=== PATIENT | female | born 1960 | race Caucasian/White ===

== ENCOUNTER → 2018-12-25 | Outpatient (CLI) | payer BC ==
[~2018-12-25] MED LIST: ALB18R INH; ALBU8.5H11 INH; CAL1TABL8 PO; CEPH-13 PO; CET10 PO; CIP500 PO; DOC100 PO; FAMO20TA28 PO; FLUT12HF2 INH; HCTZ25 PO; HYDR-3083 PO; HYDR-385 PO; HYDR12.556 PO; IBUP-1671 PO; IBUP600T22 PO; LEVO75TA76 PO; LISI-355 PO; METH54TA10 PO; METH54TA12 PO; MOMR NS; MON10 PO; MONT10TA PO; PER PO; PHEN200T32 PO; PHENA200 PO; PRED20TA6 PO; SER50 PO; SERT-173 PO; [UNRECOGNIZED DRUG - CODE] IV
--- NOTE | 2018-12-25 16:01 | RADIOLOGY IMAGING REPORT ---
[place] [facility] [place] NAME: Claudia Urban : 1960 MR: [id number] V: [id number] EXAM DATE: ORDERING PHYSICIAN: RICHA SHRESTHA TECHNOLOGIST: Location: [facility] [place] Patient: Claudia Urban : 1960 Visit/Account:[id number] Date of Sevice: 12/25/2018 PELVIC HISTORY: abdominal pressure TECHNIQUE: Transvaginal and transabdominal imaging of pelvis was performed to evaluate the pelvic an atomy ultrasound pelvis. COMPARISON: None. FINDINGS: Uterus: Patient is status post hysterectomy. Ovaries: Right - not visualized Left - not visualized There was no demonstration of free pelvic fluid or pelvic masses. Multiple loops of bowel were ident ified within the pelvis IMPRESSION: Postsurgical changes from hysterectomy. Uterus and neither ovary were visualized. There is no demonstration of free pelvic fluid or pelvic mass although there are multiple loops of elliott wel located within the pelvis Report Dictated By: Kari Ho MD at 12/25/2018 3:54 PM Report E-Signed By: Kari Ho MD at 12/25/2018 3:56 PM WSN:[id number]
== END ==
LOC: US 00:39
PROVIDERS: ATTEND Surgery
DX: R10.9 Unspecified abdominal pain (principal); Z90.710 Acquired absence of both cervix and uterus
CPT/HCPCS: 76856

== ENCOUNTER 2019-01-15 01:51 | Day surgery (SDC) | payer BC ==
[~2019-01-15] VITALS: Ht 170.2 cm; Wt 87.5 kg
[~2019-01-15 01:51] MED LIST changes: +LEVO200T44 PO; +LEVO25TA57 PO; +LISI-351 PO
[2019-01-15] MEDS ORDERED: PROPOFOL EMUL(*) 10MG/ML 20 ML 20 ML ONE (07:11)
[2019-01-15 08:56] VITALS: BP 123/93
[2019-01-15] MEDS ORDERED: NORMOSOL R SOLN(*) 1000 ML BAG 1,000 ML IV PRN (09:15)
[2019-01-15] MEDS ORDERED: LIDOCAINE/SOD BICARB 8.4% SYR ID ONE (09:15)
[2019-01-15 10:44] VITALS: BP 106/71
--- NOTE | 2019-01-15 10:52 | Short(Outpt) Discharge Summary ---
Discharge Summary Reason for Hosp/Final Diag: (1) Family history of colon cancer in mother Hospital Course & Plan: Colonoscopy with polypectomy x3 completed without problems. Colonoscopy in 5 years. Departure Discharge to: Home, Self Care Discharge Instructions Home Meds Reported Medications Lisinopril/Hydrochlorothiazide (LISINOPRIL-HCTZ 10-12.5 MG TAB) 1 Each Tablet, 1 TAB PO DAILY 01/10/19 Levothyroxine Sodium (SYNTHROID) 200 Mcg Tablet, 200 MCG PO QDAY 01/10/19 Levothyroxine Sodium (SYNTHROID) 25 Mcg Tablet, 25 MCG PO QDAY 01/10/19 Albuterol Sulfate (VENTOLIN HFA) 18 Gm Inh, 1-2 PUFF INH PRN, INH 11/26/18 Methylphenidate Hcl (CONCERTA) 54 Mg Tab.er.24, 72 MG PO QAM 11/26/18 Montelukast Sodium (SINGULAIR) 10 Mg Tablet, 1 TAB PO QDAY, TAB 11/26/18 Sertraline Hcl (ZOLOFT) 100 Mg Tablet, 1 TAB PO QDAY TAKE ONE TABLET BY MOUTH EVERY DAY 12/24/13 Salmeterol Xinaf/Fluticasone (Advair Hfa 115/21 Mcg Inhaler) 1 Puff Inh, 1 PUFF INH BID 10/29/12 Discontinued Reported Medications Levothyroxine Sodium (LEVOTHYROXINE SODIUM) 200 Mcg Vial, 225 MCG IV, VIAL 11/26/18 Hydrochlorothiazide (HYDROCHLOROTHIAZIDE) Unknown Strength Capsule, PO QDAY, CAPSULE 11/26/18 Diet: Regular Activity: As Tolerated Special Instructions: Your colonoscopy was completed without any problems and your prep was excellent (Good Job!!). I removed 3 small polyps from your colon and they were sent to pathology. My office will call you in the next 1-2 weeks to let you know what the polyps are but, in any case, your next colonoscopy should be in 5 years due to your family history. RICHA SHRESTHA MD January 15, 2019 10:52
--- NOTE | 2019-01-15 11:03 | NUR ---
PT GIVEN WATER TO DRINK. PARTNER TO BEDSIDE. DARRYLICHS TO BEDSIDE CHATTING WITH PT AND PARTNER
[2019-01-15 11:12] VITALS: BP_SYST 114; BP_SYST 116; BP_DIAS 72
== END 2019-01-15 11:20 | disposition home or self-care (01) ==
LOC: OR 01:51
PROVIDERS: ATTEND Surgery
DX: Z12.11 Encounter for screening for malignant neoplasm of colon (principal); D12.2 Benign neoplasm of ascending colon; D12.3 Benign neoplasm of transverse colon; Z80.0 Family history of malignant neoplasm of digestive organs
CPT/HCPCS: 00811; 45385; 88305; J2704

== ENCOUNTER → 2019-01-21 | Outpatient (CLI) | payer BC ==
--- NOTE | 2019-01-22 09:49 | RADIOLOGY IMAGING REPORT ---
[place] [facility] [place] KARIME LINK : [id number] MR: [id number] V: [id number] EXAM DATE: [id number] ORDERING PHYSICIAN: TOBI JENKINS TECHNOLOGIST: Chantale Dotson PROCEDURE: BILATERAL DIGITAL SCREENING MAMMOGRAM WITH CAD ASSISTED INTERPRETATION & 3D TOMOSYNTHESIS. REASON FOR STUDY: Screening. FAMILY HISTORY OF BREAST CANCER: Maternal grandmother at age 90. BREAST PROCEDURES/TREATMENTS: Patient has had a biopsy however she cannot remember which breast. COMPARISON: 02/15/17, 01/05/16. VIEWS OBTAINED: 2D & 3D full field CC & MLO. BREAST DENSITY: There are scattered areas of fibroglandular density throughout the breasts. MAMMOGRAM FINDINGS: The parenchymal pattern has remained stable allowing for difference in mammographic technique & patient positioning. There is a nodular density and macrocalcifications in the approximate 12 o'clock position of the Left breast in the middle 1/3 which have remained stable. IMPRESSION: BIRADS 2: Benign finding. DIAGNOSTIC CATEGORY 2--BENIGN FINDING. RECOMMENDATIONS: ROUTINE MAMMOGRAM AND CLINICAL EVALUATION. Dictated by: Kari Ho M.D. on 01/21/2019 at 16:31 Transcribed by: JOYCE on 01/22/2019 at 8:27 Approved by: Kari Ho M.D. on 01/22/2019 at 9:48 [facility]
== END ==
LOC: MAMO 00:41
PROVIDERS: ATTEND Nurse Practitioner Family
DX: Z12.31 Encounter for screening mammogram for malignant neoplasm of breast (principal); Z80.3 Family history of malignant neoplasm of breast
CPT/HCPCS: 77063; 77067